=== PATIENT | male | born 1995 | race African-American/Black ===

== ENCOUNTER 2016-04-20 15:55 | Emergency (ER) | payer SELFPAY ==
[~2016-04-20] VITALS: Ht 170.2 cm; Wt 105.0 kg
[2016-04-20] MEDS ORDERED: LIDOCAINE20 MG/1 M5 PO (19:02)
[2016-04-20 19:33] VITALS: BP 139/70
[2016-04-21] MEDS ORDERED: MEDROL DOSEPAK4 MG PO (20:59)
== END 2016-04-20 19:34 | disposition home or self-care (01) ==
LOC: EME 15:55
DX: J06.9 Acute upper respiratory infection, unspecified (principal); H92.09 Otalgia, unspecified ear; F17.200 Nicotine dependence, unspecified, uncomplicated
CPT/HCPCS: 99281; 99284

== ENCOUNTER 2016-04-21 17:15 | Emergency (ER) | payer OTHER ==
[~2016-04-21] VITALS: Ht 170.2 cm; Wt 104.1 kg
[~2016-04-21 17:15] MED LIST: LIDOCAINE20 MG/1 M5 PO
[2016-04-21 18:04] LABS: HEMATOCRIT 43.1 % (38.0-50.0); MCH 28.3 PG (29.0-34.0); MCHC 35.3 G/DL (30.0-36.0); MCV 80.3 FL (86-99); MEAN PLAT.VOLUME 11.2 uM^3 (9.0-12.4); PLATELET COUNT 155 K/uL (156-360); RBC DIS.WIDTH-SD 40.5 % (39-53); RED BLOOD COUNT 5.37 M/uL (4.00-5.50); WHITE BLOOD COUNT 9.6 K/uL (4.1-10.2)
[2016-04-21 18:20] LABS: CHLORIDE 105 mEq/L (99-109); POTASSIUM 3.7 mEq/L (3.7-5.4); SODIUM 140 mEq/L (136-147)
[2016-04-21 18:22] LABS: GLUCOSE 91 mg/dL (70-99)
[2016-04-21 18:23] LABS: ANION GAP 12 MEQ/L (2-14)
[2016-04-21 18:26] LABS: GFR ESTIMATE (CALCULATED) > 59 mL/min/
[2016-04-21 18:27] LABS: UREA NITROGEN (BUN) 8 mg/dL (9-23)
[2016-04-21] MEDS ORDERED: MEDROL DOSEPAK4 MG PO (20:59)
[2016-04-21 21:14] VITALS: BP 143/59
[2016-04-22] MEDS ORDERED: OMEPRAZOLE20 MG PO (16:49)
== END 2016-04-21 21:15 | disposition home or self-care (01) ==
LOC: EME 17:15
PROVIDERS: Emergency Medicine
DX: J02.9 Acute pharyngitis, unspecified (principal)
CPT/HCPCS: 70491; 80048; 83605; 85027; 87040; 99281; 99284; J1100

== ENCOUNTER 2016-04-22 12:14 | Emergency (ER) | payer OTHER ==
[~2016-04-22] VITALS: Ht 170.2 cm; Wt 103.4 kg
[~2016-04-22 12:14] MED LIST changes: +MEDROL DOSEPAK4 MG PO
[2016-04-22] MEDS ORDERED: OMEPRAZOLE20 MG PO (16:49)
[2016-04-22 17:13] VITALS: BP 139/80
== END 2016-04-22 17:15 | disposition home or self-care (01) ==
LOC: EME 12:14
DX: K21.9 Gastro-esophageal reflux disease without esophagitis (principal); F17.200 Nicotine dependence, unspecified, uncomplicated
CPT/HCPCS: 99281; 99284; J2060